=== PATIENT | female | born 1950 | race American Indian/Alaskan Native ===

== ENCOUNTER 2017-08-25 23:02 | Inpatient (IN) | payer MEDICARE, OTHER ==
[2017-08-25 23:56] LABS: Basophils % (Auto) 0.2 % (0.0-1.8); Hematocrit 43.4 % (30.3-42.9); Hemoglobin 14.1 gm/dl (10.1-14.3); Lymphocytes # (Auto) 2.2 K/mm3 (1.2-5.4); Mean Corpuscular HGB Conc 33 % (30-34); Mean Corpuscular Hemoglobin 28 pg (28-32); Mean Corpuscular Volume 86 fl (79-97); Monocytes # (Auto) 0.7 K/mm3 (0.0-0.8); Monocytes % (Auto) 10.1 % (0.0-7.3); Red Blood Count 5.06 M/mm3 (3.65-5.03); Red Cell Distribution Width 15.3 % (13.2-15.2)
[2017-08-26] LABS: Platelet Count 96 K/mm3 (140-440)
[2017-08-26 00:26] LABS: Albumin 3.8 g/dL (3.9-5); Calcium 8.9 mg/dL (8.4-10.2)
--- NOTE | 2017-08-26 00:59 | Emergency Department Report ---
ED Altered Mental Status HPI - General Chief Complaint: Altered Mental Status Stated Complaint: AMS Time Seen by Provider: 08/26/17 00:56 Source: EMS Mode of arrival: Stretcher Limitations: Altered Mental Status - History of Present Illness Initial Comments: Patient brought in with report of altered mental status, reported by family that she was disoriented and groaning, with patient stating that her stomach hurts. She has a past history of lymphoma, which was successfully treated in 2016, and she returned to [place] yesterday had a port removed, and daughter reports that patient has been increasingly weak since that time, has been intermittently confused, which got much worse approximately 2 hours prior to arrival . Daughter also notes that she has been having increasing diarrhea, as well as intermittent vomiting, but this has been intermittent, generally 2-3 times over the day. She is noted to have a low-grade fever on arrival with temperature of 99.7. Daughter noticed that mother has significantly improved after arrival here, and is again much more clearly. Past medical history is significant for lymphoma, adenocarcinoma of the palate, hypertension, past stroke. MD Complaint: altered mental status, weakness Onset/Timin -: days(s) Severity: moderate - Related Data Home Medications Medication Instructions Recorded Confirmed Last Taken Aspirin [Aspirin BABY CHEW TAB] 81 mg PO ONCE 09/08/13 10/23/13 10/23/13 Carvedilol [Coreg] 50 mg PO BID 09/08/13 10/23/13 10/23/13 Atorvastatin (Nf) [Lipitor (Nf)] 20 mg PO QDAY 10/23/13 10/23/13 10/22/13 Doxazosin [Cardura] 4 mg PO BID 10/23/13 10/23/13 10/23/13 Ibuprofen [Motrin 600 MG tab] 600 mg PO Q8H PRN 10/23/13 10/23/13 Unknown Isosorbibe Dinit/Hydralazine 8 mg PO Q8H 10/23/13 10/23/13 10/23/13 [Bidil Tablet] Meloxicam 15 mg PO QDAY 10/23/13 10/23/13 Unknown cloNIDine [Catapres] 0.1 mg PO Q6H PRN 10/23/13 10/23/13 Unknown Allergies Allergy/AdvReac Type Severity Reaction Status Date / Time ibuprofen [From Motrin] Allergy Headache Verified 09/08/13 19:41 ED Review of Systems ROS: Stated complaint: AMS Other details as noted in HPI ED Past Medical Hx - Past Medical History Hx Hypertension: Yes Hx Congestive Heart Failure: Yes Additional medical history: Adenocarcinoma of maxillary glands, palatal defect, Lymphoma, Back pain. Vertigo, heart failure - Surgical History Additional Surgical History: Left hip surgery - Social History Smoking Status: Never Smoker Substance Use Type: None - Medications Home Medications: Home Medications Medication Instructions Recorded Confirmed Last Taken Type Aspirin [Aspirin BABY CHEW TAB] 81 mg PO ONCE 09/08/13 10/23/13 10/23/13 History Carvedilol [Coreg] 50 mg PO BID 09/08/13 10/23/13 10/23/13 History Atorvastatin (Nf) [Lipitor (Nf)] 20 mg PO QDAY 10/23/13 10/23/13 10/22/13 History Doxazosin [Cardura] 4 mg PO BID 10/23/13 10/23/13 10/23/13 History Ibuprofen [Motrin 600 MG tab] 600 mg PO Q8H PRN 10/23/13 10/23/13 Unknown History Isosorbibe Dinit/Hydralazine 8 mg PO Q8H 10/23/13 10/23/13 10/23/13 History [Bidil Tablet] Meloxicam 15 mg PO QDAY 10/23/13 10/23/13 Unknown History cloNIDine [Catapres] 0.1 mg PO Q6H PRN 10/23/13 10/23/13 Unknown History ED Physical Exam - General Limitations: Altered Mental Status General appearance: alert, in distress (febrile, modestly uncomfortable, but alert and oriented) - Head Head exam: Present: atraumatic, normocephalic - Eye Eye exam: Present: PERRL, EOMI - ENT ENT exam: Present: normal exam, mucous membranes dry - Neck Neck exam: Present: normal inspection. Absent: tenderness - Respiratory Respiratory exam: Present: normal lung sounds bilaterally. Absent: respiratory distress, wheezes, rales, rhonchi - Cardiovascular Cardiovascular Exam: Present: regular rate, tachycardia - GI/Abdominal GI/Abdominal exam: Present: soft, tenderness (left flank), normal bowel sounds - Rectal Rectal exam: Present: deferred - Extremities Exam Extremities exam: Present: normal inspection, full ROM. Absent: tenderness - Back Exam Back exam: Present: CVA tenderness (L) - Neurological Exam Neurological exam: Present: alert, oriented X3, CN II-XII intact. Absent: motor sensory deficit - Psychiatric Psychiatric exam: Present: normal affect, normal mood - Skin Skin exam: Present: warm (feverish), dry ED Course Vital Signs 08/25/17 08/25/17 08/25/17 23:15 23:25 23:30 Temperature 99.7 F H 98.7 F Pulse Rate 101 H 94 H 93 H Respiratory 22 20 12 Rate Blood Pressure 132/81 133/79 Blood Pressure 132/81 [Left] O2 Sat by Pulse 99 97 Oximetry 08/25/17 08/26/17 08/26/17 23:46 00:00 00:16 Temperature Pulse Rate 99 H 99 H 96 H Respiratory 11 L 21 20 Rate Blood Pressure 133/79 133/87 133/87 Blood Pressure [Left] O2 Sat by Pulse 98 98 97 Oximetry 08/26/17 08/26/17 08/26/17 00:30 00:46 01:00 Temperature Pulse Rate 98 H 96 H 94 H Respiratory 24 25 H 25 H Rate Blood Pressure 134/86 134/86 144/85 Blood Pressure [Left] O2 Sat by Pulse 97 95 Oximetry 08/26/17 08/26/17 08/26/17 01:16 01:30 01:45 Temperature 99.2 F Pulse Rate 105 H 104 H Respiratory 20 20 Rate Blood Pressure 134/86 143/85 Blood Pressure [Left] O2 Sat by Pulse 96 97 Oximetry 08/26/17 08/26/17 08/26/17 01:46 02:00 02:16 Temperature Pulse Rate 100 H 96 H 98 H Respiratory 19 17 14 Rate Blood Pressure 144/85 137/78 137/78 Blood Pressure [Left] O2 Sat by Pulse 100 95 98 Oximetry 08/26/17 08/26/17 08/26/17 02:30 02:46 03:00 Temperature Pulse Rate 92 H 93 H 100 H Respiratory 16 20 20 Rate Blood Pressure 128/72 128/72 128/72 Blood Pressure [Left] O2 Sat by Pulse 96 93 98 Oximetry 08/26/17 08/26/17 08/26/17 03:16 03:30 03:46 Temperature Pulse Rate 94 H 99 H 97 H Respiratory 12 21 21 Rate Blood Pressure 115/73 100/65 100/65 Blood Pressure [Left] O2 Sat by Pulse 95 94 95 Oximetry 08/26/17 08/26/17 08/26/17 04:00 04:16 04:30 Temperature Pulse Rate 94 H 96 H 93 H Respiratory 20 19 21 Rate Blood Pressure 112/65 100/65 110/64 Blood Pressure [Left] O2 Sat by Pulse 94 95 95 Oximetry 08/26/17 08/26/17 04:46 05:00 Temperature Pulse Rate 100 H 95 H Respiratory 21 21 Rate Blood Pressure 110/64 121/66 Blood Pressure [Left] O2 Sat by Pulse 97 94 Oximetry - Reevaluation(s) Reevaluation #1: 08/26/17 05:27 Patient remains febrile, but is still awake and oriented, she has a persistent tachycardia, even after rehydration with 1 L of saline. Vital signs are otherwise stable, patient remains febrile at 99.5, and she was treated for fever with acetaminophen. - Consultations Consultation #1: 08/26/17 05:30 Dr. Puente contacted for admission of patient, with findings of pyelonephritis, and hypokalemia. - Lab Data Result diagrams: 08/25/17 23:45 08/25/17 23:45 Lab Results 08/25/17 08/25/17 08/25/17 Range/Units 23:45 23:45 23:45 WBC 7.3 (4.5-11.0) K/mm3 RBC 5.06 H (3.65-5.03) M/mm3 Hgb 14.1 (10.1-14.3) gm/dl Hct 43.4 H (30.3-42.9) % MCV 86 (79-97) fl MCH 28 (28-32) pg MCHC 33 (30-34) % RDW 15.3 H (13.2-15.2) % Plt Count 96 L (140-440) K/mm3 Lymph % (Auto) 30.0 (13.4-35.0) % [place] % (Auto) 10.1 H (0.0-7.3) % Eos % (Auto) 0.0 (0.0-4.3) % Baso % (Auto) 0.2 (0.0-1.8) % Lymph # 2.2 (1.2-5.4) K/mm3 [place] # 0.7 (0.0-0.8) K/mm3 Eos # 0.0 (0.0-0.4) K/mm3 Baso # 0.0 (0.0-0.1) K/mm3 Seg Neutrophils % 59.7 (40.0-70.0) % Seg Neutrophils # 4.3 (1.8-7.7) K/mm3 Sodium 142 (137-145) mmol/L Potassium 3.0 L (3.6-5.0) mmol/L Chloride 98.2 (98-107) mmol/L Carbon Dioxide 24 (22-30) mmol/L Anion Gap 23 mmol/L BUN 29 H (7-17) mg/dL Creatinine 1.6 H (0.7-1.2) mg/dL Estimated GFR 39 ml/min BUN/Creatinine Ratio 18 % Glucose 117 H (65-100) mg/dL Lactic Acid (0.7-2.0) mmol/L Calcium 8.9 (8.4-10.2) mg/dL Total Bilirubin 0.50 (0.1-1.2) mg/dL AST 29 (5-40) units/L ALT 22 (7-56) units/L Alkaline Phosphatase 85 (35-129) units/L Total Protein 6.7 (6.3-8.2) g/dL Albumin 3.8 L (3.9-5) g/dL Albumin/Globulin Ratio 1.3 % TSH 0.982 (0.270-4.200) mlU/mL Urine Color (Yellow) Urine Turbidity (Clear) Urine pH (5.0-7.0) Ur Specific [place] (1.003-1.030) Urine Protein (Negative) mg/dL Urine Glucose (UA) (Negative) mg/dL Urine Ketones (Negative) mg/dL Urine Blood (Negative) Urine Nitrite (Negative) Urine Bilirubin (Negative) Urine Urobilinogen (<2.0) mg/dL Ur Leukocyte Esterase (Negative) Urine WBC (Auto) (0.0-6.0) /HPF Urine RBC (Auto) (0.0-6.0) /HPF U Epithel Cells (Auto) (0-13.0) /HPF Urine Bacteria (Auto) (Negative) /HPF Hyaline Casts /LPF Granular Casts /LPF Urine Mucus /HPF Urine Opiates Screen Urine Methadone Screen Ur Barbiturates Screen Ur Phencyclidine Scrn Ur Amphetamines Screen U Benzodiazepines Scrn Urine Cocaine Screen U Marijuana (THC) Screen Drugs of Abuse Note Plasma/Serum Alcohol (0-0.07) % 08/25/17 08/26/17 08/26/17 Range/Units 23:45 01:40 01:40 WBC (4.5-11.0) K/mm3 RBC (3.65-5.03) M/mm3 Hgb (10.1-14.3) gm/dl Hct (30.3-42.9) % MCV (79-97) fl MCH (28-32) pg MCHC (30-34) % RDW (13.2-15.2) % Plt Count (140-440) K/mm3 Lymph % (Auto) (13.4-35.0) % [place] % (Auto) (0.0-7.3) % Eos % (Auto) (0.0-4.3) % Baso % (Auto) (0.0-1.8) % Lymph # (1.2-5.4) K/mm3 [place] # (0.0-0.8) K/mm3 Eos # (0.0-0.4) K/mm3 Baso # (0.0-0.1) K/mm3 Seg Neutrophils % (40.0-70.0) % Seg Neutrophils # (1.8-7.7) K/mm3 Sodium (137-145) mmol/L Potassium (3.6-5.0) mmol/L Chloride (98-107) mmol/L Carbon Dioxide (22-30) mmol/L Anion Gap mmol/L BUN (7-17) mg/dL Creatinine (0.7-1.2) mg/dL Estimated GFR ml/min BUN/Creatinine Ratio % Glucose (65-100) mg/dL Lactic Acid (0.7-2.0) mmol/L Calcium (8.4-10.2) mg/dL Total Bilirubin (0.1-1.2) mg/dL AST (5-40) units/L ALT (7-56) units/L Alkaline Phosphatase (35-129) units/L Total Protein (6.3-8.2) g/dL Albumin (3.9-5) g/dL Albumin/Globulin Ratio % TSH (0.270-4.200) mlU/mL Urine Color [place] (Yellow) Urine Turbidity Hazy (Clear) Urine pH 5.0 (5.0-7.0) Ur Specific [place] 1.020 (1.003-1.030) Urine Protein 100 mg/dl (Negative) mg/dL Urine Glucose (UA) Neg (Negative) mg/dL Urine Ketones Tr (Negative) mg/dL Urine Blood Sm (Negative) Urine Nitrite Neg (Negative) Urine Bilirubin Neg (Negative) Urine Urobilinogen < 2.0 (<2.0) mg/dL Ur Leukocyte Esterase Lg (Negative) Urine WBC (Auto) 16.0 H (0.0-6.0) /HPF Urine RBC (Auto) 32.0 (0.0-6.0) /HPF U Epithel Cells (Auto) 11.0 (0-13.0) /HPF Urine Bacteria (Auto) 2+ (Negative) /HPF Hyaline Casts 57 /LPF Granular Casts 8 /LPF Urine Mucus 1+ /HPF Urine Opiates Screen Presumptive negative Urine Methadone Screen Presumptive negative Ur Barbiturates Screen Presumptive negative Ur Phencyclidine Scrn Presumptive negative Ur Amphetamines Screen Presumptive negative U Benzodiazepines Scrn Presumptive positive Urine Cocaine Screen Presumptive negative U Marijuana (THC) Screen Presumptive negative Drugs of Abuse Note Disclamer Plasma/Serum Alcohol < 0.01 (0-0.07) % 08/26/17 Range/Units 02:05 WBC (4.5-11.0) K/mm3 RBC (3.65-5.03) M/mm3 Hgb (10.1-14.3) gm/dl Hct (30.3-42.9) % MCV (79-97) fl MCH (28-32) pg MCHC (30-34) % RDW (13.2-15.2) % Plt Count (140-440) K/mm3 Lymph % (Auto) (13.4-35.0) % [place] % (Auto) (0.0-7.3) % Eos % (Auto) (0.0-4.3) % Baso % (Auto) (0.0-1.8) % Lymph # (1.2-5.4) K/mm3 [place] # (0.0-0.8) K/mm3 Eos # (0.0-0.4) K/mm3 Baso # (0.0-0.1) K/mm3 Seg Neutrophils % (40.0-70.0) % Seg Neutrophils # (1.8-7.7) K/mm3 Sodium (137-145) mmol/L Potassium (3.6-5.0) mmol/L Chloride (98-107) mmol/L Carbon Dioxide (22-30) mmol/L Anion Gap mmol/L BUN (7-17) mg/dL Creatinine (0.7-1.2) mg/dL Estimated GFR ml/min BUN/Creatinine Ratio % Glucose (65-100) mg/dL Lactic Acid 1.20 (0.7-2.0) mmol/L Calcium (8.4-10.2) mg/dL Total Bilirubin (0.1-1.2) mg/dL AST (5-40) units/L ALT (7-56) units/L Alkaline Phosphatase (35-129) units/L Total Protein (6.3-8.2) g/dL Albumin (3.9-5) g/dL Albumin/Globulin Ratio % TSH (0.270-4.200) mlU/mL Urine Color (Yellow) Urine Turbidity (Clear) Urine pH (5.0-7.0) Ur Specific [place] (1.003-1.030) Urine Protein (Negative) mg/dL Urine Glucose (UA) (Negative) mg/dL Urine Ketones (Negative) mg/dL Urine Blood (Negative) Urine Nitrite (Negative) Urine Bilirubin (Negative) Urine Urobilinogen (<2.0) mg/dL Ur Leukocyte Esterase (Negative) Urine WBC (Auto) (0.0-6.0) /HPF Urine RBC (Auto) (0.0-6.0) /HPF U Epithel Cells (Auto) (0-13.0) /HPF Urine Bacteria (Auto) (Negative) /HPF Hyaline Casts /LPF Granular Casts /LPF Urine Mucus /HPF Urine Opiates Screen Urine Methadone Screen Ur Barbiturates Screen Ur Phencyclidine Scrn Ur Amphetamines Screen U Benzodiazepines Scrn Urine Cocaine Screen U Marijuana (THC) Screen Drugs of Abuse Note Plasma/Serum Alcohol (0-0.07) % - EKG Data EKG shows normal: sinus rhythm, axis (QRS axis at -1), intervals (WA interval is normal, QT interval is normal at 446 ms corrected), QRS complexes ( compatible with left ventricular hypertrophy by voltage criteria and anterior limb leads), ST-T waves (nonspecific ST-T wave flattening, no acute changes) - Radiology Data Radiology results: report reviewed (chest x-ray clear, mild cardiomegaly, lungs espinoza are clear.) - Medical Decision Making Patient has persistent fever, with nausea and vomiting, as well as transient confusion, with signs of urinary tract infection and left flank tenderness. She likely has a pyelonephritis, although she is stable by SIRS criteria, she' ll need hospitalization for IV antibiotic treatment, she is likely not able to keep an oral medicine regimen adequately at home. - Differential Diagnosis fever, pneumonia, dehydration, gastroenteritis, UTI Critical Care Time: No Critical care attestation.: If time is entered above; I have spent that time in minutes in the direct care of this critically ill patient, excluding procedure time. ED Disposition Clinical Impression: Pyelonephritis, acute, Hypokalemia Disposition: -09 OP ADMIT IP TO THIS HOSP Is pt being admited?: Yes Does the pt Need Aspirin: No Condition: Stable Referrals: PRIMARY CARE, [Primary Care Provider] - 3-5 Days Time of Disposition: 05:31
[2017-08-26] MEDS ORDERED: NACL 0.9% 1000 ML 1,000 ML IV ONE (01:42)
[2017-08-26] MEDS ORDERED: ZOFRAN IV ONE (01:45)
[2017-08-26] MEDS ORDERED: TYLENOL PO ONE (01:46)
--- NOTE | 2017-08-26 02:00 | XRay Report ---
FINAL REPORT EXAM: XR CHEST 1V AP HISTORY: fever, altered mental COMPARISON: None available. FINDINGS: Frontal view(s) of the chest obtained. Mild cardiac enlargement. No gross focal consolidation or effusion. No pneumothorax. IMPRESSION: Mild cardiac enlargement. No gross focal consolidation.
[2017-08-26 02:11] LABS: Amphetamine Screen,Urine PRESUMPTIVE NEGATIVE; Cannabinoid Screen,Urine PRESUMPTIVE NEGATIVE; Cocaine Screen,Urine PRESUMPTIVE NEGATIVE; Methadone Screen,Urine PRESUMPTIVE NEGATIVE; Opiate Screen,Urine PRESUMPTIVE NEGATIVE
[2017-08-26 02:13] LABS: Bacteria,Urine 2+ /HPF (Negative); Bilirubin,Urine NEG (Negative); Blood,Urine SM (Negative); Color,Urine Amber (Yellow); Granular Casts,Urine 8 /LPF; Hyaline Casts,Urine 57 /LPF; Mucus,Urine 1+ /HPF; Urobilinogen,Urine < 2.0 mg/dL (<2.0)
[2017-08-26 02:30] LABS: Benzodiazepines Screen,Urine PRESUMPTIVE POSITIVE
[2017-08-26] MEDS ORDERED: KCL 10MEQ/100ML 10 MEQ/100 ML BAG IV ONE (04:56)
[2017-08-26] MEDS ORDERED: ROCEPHIN/NS 1 GM/50 ML 1 GM/50 ML BAG IV ONE (05:24)
[2017-08-26] MEDS ORDERED: TYLENOL PO PRN (05:54)
[2017-08-26] MEDS ORDERED: SODIUM CHLORIDE FLUSH SYRINGE 10 ML IV PRN (05:54)
[2017-08-26] MEDS ORDERED: ZOFRAN IV PRN (05:54)
[2017-08-26] MEDS ORDERED: cefTRIAXone 1 GM in NACL 0.9% 20 ML IV ONE (06:00)
[2017-08-26] MEDS ORDERED: NACL 0.9% 1000 ML 1,000 ML IV SCH (06:00)
[2017-08-26] MEDS ORDERED: ROCEPHIN/NS 1 GM/50 ML 1 GM/50 ML BAG IV SCH (06:00)
--- NOTE | 2017-08-26 06:08 | History and Physical Report ---
History of Present Illness Date of examination: 08/26/17 History of present illness: 67-year-old lady with a history of hypertension, hyperlipidemia, CHF, A. fib, lymphoma was brought to the emergency room with plains of chills, confusion. Also complaining of rhinorrhea, dry cough, and diarrhea which is resolved Review of systems Constitutional: no weight loss Ears, eyes, nose, mouth and throat: no nasal congestion, no nasal discharge, no sinus pressure, no vision change, no red eye. Neck: No neck pain or rigidity. Cardiovascular: no chest pain, palpitations Respiratory: No cough, shortness of breath Gastrointestinal: no abdominal pain, hematochezia Genitourinary : no dysuria, frequency , no hematuria Musculoskeletal: no joint swelling or muscle ache Integumentary: no rash, no pruritis Neurological: no parathesias, no numbness, no focal weakness Endocrine: no cold or heat intolerance, no polyuria or polydipsia Hematologic/Lymphatic: no easy bruising, no easy bleeding, no gland swelling Allergic/Immunologic: no urticaria, no angioedema. PAST MEDICAL HISTORY: hypertension, hyperlipidemia, CHF, A. fib, lymphoma PAST SURGICAL HISTORY: Port placement and removal, hip surgery, oral surgery SOCIAL HISTORY: Denies alcohol, tobacco, drugs FAMILY HISTORY: Hypertension Medications and Allergies Allergies Allergy/AdvReac Type Severity Reaction Status Date / Time ibuprofen [From Motrin] Allergy Headache Verified 09/08/13 19:41 Home Medications Medication Instructions Recorded Confirmed Last Taken Type Aspirin [Aspirin BABY CHEW TAB] 81 mg PO ONCE 09/08/13 10/23/13 10/23/13 History Carvedilol [Coreg] 50 mg PO BID 09/08/13 10/23/13 10/23/13 History Atorvastatin (Nf) [Lipitor (Nf)] 20 mg PO QDAY 10/23/13 10/23/13 10/22/13 History Doxazosin [Cardura] 4 mg PO BID 10/23/13 10/23/13 10/23/13 History Ibuprofen [Motrin 600 MG tab] 600 mg PO Q8H PRN 10/23/13 10/23/13 Unknown History Isosorbibe Dinit/Hydralazine 8 mg PO Q8H 10/23/13 10/23/13 10/23/13 History [Bidil Tablet] Meloxicam 15 mg PO QDAY 10/23/13 10/23/13 Unknown History cloNIDine [Catapres] 0.1 mg PO Q6H PRN 10/23/13 10/23/13 Unknown History Active Meds: Active Medications Acetaminophen (Tylenol) 650 mg PO Q4H PRN PRN Reason: Pain MILD(1-3)/Fever >100.5/CH Sodium Chloride (Nacl 0.9% 1000 Ml) 1,000 mls @ 250 mls/hr IV DIRECT TONNY Ceftriaxone Sodium 1 gm/ (Sodium Chloride) 20 mls @ 2 mls/min IV ONCE ONE Stop: 08/26/17 06:09 Ceftriaxone Sodium (Rocephin/Ns 1 Gm/50 Ml) 1 gm in 50 mls @ 100 mls/hr IV Q24H TONNY; Protocol Exam - Physical Exam Narrative exam: Gen. appearance: Patient lying in bed, no apparent distress HEENT: Normocephalic, atraumatic, pupils equally round and reactive to light, extraocular movement intact, and no sclericterus,. No JVD or thyromegaly or nodule,neck supple, no carotid bruit ,mucous membranes moist, no exudate or erythema Heart: S1, S2, regular rate and rhythm Lungs: Clear to auscultation bilaterally, breathing comfortable Abdomen: Positive bowel sounds, nontender, nondistended, no organomegaly Extremity: No edema, cyanosis, clubbing Skin: No rash, nodules, warm, dry Neuro: Oriented 3, cranial nerves II-12 intact, speech is fluent, motor and sensory intact - Constitutional Vitals: Temp Pulse Resp BP Pulse Ox 99.2 F 95 H 21 121/66 94 08/26/17 01:45 08/26/17 05:00 08/26/17 05:00 08/26/17 05:00 08/26/17 05:00 Results - Labs CBC & Chem 7: 08/25/17 23:45 08/25/17 23:45 Labs: Abnormal lab results 08/25/17 08/25/17 08/26/17 Range/Units 23:45 23:45 01:40 RBC 5.06 H (3.65-5.03) M/mm3 Hct 43.4 H (30.3-42.9) % RDW 15.3 H (13.2-15.2) % Plt Count 96 L (140-440) K/mm3 [place] % (Auto) 10.1 H (0.0-7.3) % Potassium 3.0 L (3.6-5.0) mmol/L BUN 29 H (7-17) mg/dL Creatinine 1.6 H (0.7-1.2) mg/dL Glucose 117 H (65-100) mg/dL Albumin 3.8 L (3.9-5) g/dL Urine WBC (Auto) 16.0 H (0.0-6.0) /HPF - Imaging and Cardiology Chest x-ray: image reviewed Assessment and Plan Assessment Acute encephalopathy Urinary tract infection Hypertension Hyperlipidemia A. fib Lymphoma Plan Admit to medicine Start IV Rocephin, follow cultures Continue Procrit up his medications DVT prophylaxis
[2017-08-26] MEDS ORDERED: TYLENOL ONE (07:40)
[2017-08-26] MEDS ORDERED: CATAPRES PO PRN (08:04)
[2017-08-26] MEDS ORDERED: BIDIL 20/37.5MG PO SCH (09:00)
[2017-08-26] MEDS: CARDURA PO SCH ×2 (09:32→21:24)
[2017-08-26] MEDS: SODIUM CHLORIDE FLUSH SYRINGE 10 ML IV SCH ×2 (09:32→22:15)
[2017-08-26] MEDS: COREG PO SCH ×2 (09:34→21:23)
[2017-08-26] MEDS: NACL 0.9% 1000 ML 1,000 ML IV SCH (09:39)
[2017-08-26] MEDS ORDERED: LOVENOX SUB-Q SCH (10:00)
--- NOTE | 2017-08-26 14:30 | Event Note ---
Date: 08/26/17 Patient seen and evaluated Medical records reviewed Admitted smoking. Sepsis secondary to UTI Agree with current management Follow cultures, consider ID evaluation will need
[2017-08-26] MEDS: ULTRAM PO PRN (18:21)
[2017-08-27] MEDS: NACL 0.9% 1000 ML 1,000 ML IV SCH ×2 (01:00→17:05)
[2017-08-27 05:03] LABS: Hematocrit 34.6 % (30.3-42.9); Hemoglobin 11.7 gm/dl (10.1-14.3); Mean Corpuscular HGB Conc 34 % (30-34); Mean Corpuscular Hemoglobin 29 pg (28-32); Mean Corpuscular Volume 85 fl (79-97); Red Blood Count 4.08 M/mm3 (3.65-5.03); Red Cell Distribution Width 15.5 % (13.2-15.2)
[2017-08-27 05:05] LABS: Platelet Count 69 K/mm3 (140-440)
[2017-08-27 05:21] LABS: Calcium 7.7 mg/dL (8.4-10.2)
[2017-08-27 05:53] LABS: Total Cells Counted 100
[2017-08-27 05:54] LABS: Basophils % (Manual) 0 % (0.0-1.8); Eosinophils % (Manual) 0 % (0.0-4.3)
[2017-08-27 05:57] LABS: Platelet Estimate Consistent w Auto
[2017-08-27] MEDS ORDERED: cefTRIAXone 1 GM in NACL 0.9% 20 ML IV SCH (06:00)
[2017-08-27] MEDS ORDERED: K-DUR PO ONE (08:40)
--- NOTE | 2017-08-27 08:42 | Progress Note ---
Assessment and Plan Assessment and plan: --Metabolic encephalopathy; secondary to sepsis secondary to urinary tract infection Slightly improved, patient is more alert and awake, continue supportive care --Sepsis due to urinary tract infection; present on admission IV fluids, empiric antibiotics, follow cultures, consider ID evaluation if needed --Hypertension; moderate control, continue antihypertensives and when necessary meds --Acute kidney injury; secondary to ATN, significantly improved Closely monitor renal function, avoid nephrotoxins --Dyslipidemia; stable on lipid-lowering medications --DVT prophylaxis with Lovenox Closely monitor the patient and adjust the management as needed Possible discharge home in 1-2 days if stable History Interval history: Patient seen and examined medical records reviewed No new events reported by the nursing staff Patient feels slightly better Alert awake oriented 3 Vital signs reviewed Hospitalist Physical - Constitutional Vitals: Temp Pulse Resp BP Pulse Ox 99.9 F H 90 20 137/67 95 08/27/17 07:53 08/27/17 07:53 08/27/17 07:53 08/27/17 07:53 08/27/17 07:53 General appearance: Present: no acute distress, well-nourished, obese - EENT Eyes: Present: PERRL, EOM intact - Neck Neck: Present: supple, normal ROM - Respiratory Respiratory effort: normal Respiratory: negative: rales, rhonchi, wheezing - Cardiovascular Rhythm: regular Heart Sounds: Present: S1 & S2 - Extremities Extremities: no ischemia, No edema - Abdominal General gastrointestinal: soft, non-tender, non-distended, normal bowel sounds - Integumentary Integumentary: Present: clear, warm - Psychiatric Psychiatric: appropriate mood/affect, cooperative - Neurologic Neurologic: CNII-XII intact, moves all extremities Results - Labs CBC & Chem 7: 08/27/17 04:45 08/27/17 04:45 Labs: Laboratory Last Values WBC 2.7 K/mm3 (4.5-11.0) L 08/27/17 04:45 RBC 4.08 M/mm3 (3.65-5.03) 08/27/17 04:45 Hgb 11.7 gm/dl (10.1-14.3) 08/27/17 04:45 Hct 34.6 % (30.3-42.9) D 08/27/17 04:45 MCV 85 fl (79-97) 08/27/17 04:45 MCH 29 pg (28-32) 08/27/17 04:45 MCHC 34 % (30-34) 08/27/17 04:45 RDW 15.5 % (13.2-15.2) H 08/27/17 04:45 Plt Count 69 K/mm3 (140-440) L 08/27/17 04:45 Lymph % (Auto) [employer] Agent 08/27/17 04:45 [place] % (Auto) 10.1 % (0.0-7.3) H 08/25/17 23:45 Eos % (Auto) 0.0 % (0.0-4.3) 08/25/17 23:45 Baso % (Auto) 0.2 % (0.0-1.8) 08/25/17 23:45 Lymph # 2.2 K/mm3 (1.2-5.4) 08/25/17 23:45 [place] # 0.7 K/mm3 (0.0-0.8) 08/25/17 23:45 Eos # 0.0 K/mm3 (0.0-0.4) 08/25/17 23:45 Baso # 0.0 K/mm3 (0.0-0.1) 08/25/17 23:45 Add Manual Diff Complete 08/27/17 04:45 Total Counted 100 08/27/17 04:45 Seg Neutrophils % [employer] 08/27/17 04:45 Seg Neuts % (Manual) 44.0 % (40.0-70.0) 08/27/17 04:45 Band Neutrophils % 1.0 % 08/27/17 04:45 Lymphocytes % (Manual) 43.0 % (13.4-35.0) H 08/27/17 04:45 Reactive Lymphs % (Man) 0 % 08/27/17 04:45 Monocytes % (Manual) 12.0 % (0.0-7.3) H 08/27/17 04:45 Eosinophils % (Manual) 0 % (0.0-4.3) 08/27/17 04:45 Basophils % (Manual) 0 % (0.0-1.8) 08/27/17 04:45 Metamyelocytes % 0 % 08/27/17 04:45 Myelocytes % 0 % 08/27/17 04:45 Promyelocytes % 0 % 08/27/17 04:45 Blast Cells % 0 % 08/27/17 04:45 Nucleated RBC % Not Reportable 08/27/17 04:45 Seg Neutrophils # 4.3 K/mm3 (1.8-7.7) 08/25/17 23:45 Seg Neutrophils # Man 1.2 K/mm3 (1.8-7.7) L 08/27/17 04:45 Band Neutrophils # 0.0 K/mm3 08/27/17 04:45 Lymphocytes # (Manual) 1.2 K/mm3 (1.2-5.4) 08/27/17 04:45 Abs React Lymphs (Man) 0.0 K/mm3 08/27/17 04:45 Monocytes # (Manual) 0.3 K/mm3 (0.0-0.8) 08/27/17 04:45 Eosinophils # (Manual) 0.0 K/mm3 (0.0-0.4) 08/27/17 04:45 Basophils # (Manual) 0.0 K/mm3 (0.0-0.1) 08/27/17 04:45 Metamyelocytes # 0.0 K/mm3 08/27/17 04:45 Myelocytes # 0.0 K/mm3 08/27/17 04:45 Promyelocytes # 0.0 K/mm3 08/27/17 04:45 Blast Cells # 0.0 K/mm3 08/27/17 04:45 WBC Morphology Not Reportable 08/27/17 04:45 Hypersegmented Neuts Not Reportable 08/27/17 04:45 Hyposegmented Neuts Not Reportable 08/27/17 04:45 Hypogranular Neuts Not Reportable 08/27/17 04:45 Smudge Cells Not Reportable 08/27/17 04:45 Toxic Granulation Not Reportable 08/27/17 04:45 Toxic Vacuolation Not Reportable 08/27/17 04:45 Dohle Bodies Not Reportable 08/27/17 04:45 Pelger-Huet Anomaly Not Reportable 08/27/17 04:45 Marya Rods Not Reportable 08/27/17 04:45 Platelet Estimate Consistent w auto 08/27/17 04:45 Clumped Platelets Not Reportable 08/27/17 04:45 Plt Clumps, EDTA Not Reportable 08/27/17 04:45 Large Platelets Not Reportable 08/27/17 04:45 Giant Platelets Not Reportable 08/27/17 04:45 Platelet Satelliting Not Reportable 08/27/17 04:45 Plt Morphology Comment Not Reportable 08/27/17 04:45 RBC Morphology Not Reportable 08/27/17 04:45 Dimorphic RBCs Not Reportable 08/27/17 04:45 Polychromasia Not Reportable 08/27/17 04:45 Hypochromasia Not Reportable 08/27/17 04:45 Poikilocytosis Not Reportable 08/27/17 04:45 Anisocytosis Not Reportable 08/27/17 04:45 Microcytosis Not Reportable 08/27/17 04:45 Macrocytosis Not Reportable 08/27/17 04:45 Spherocytes Not Reportable 08/27/17 04:45 Pappenheimer Bodies Not Reportable 08/27/17 04:45 Sickle Cells Not Reportable 08/27/17 04:45 Target Cells Not Reportable 08/27/17 04:45 Tear Drop Cells Not Reportable 08/27/17 04:45 Ovalocytes Not Reportable 08/27/17 04:45 Helmet Cells Not Reportable 08/27/17 04:45 Mack[place] Bodies Not Reportable 08/27/17 04:45 [place] Rings Not Reportable 08/27/17 04:45 Sami Cells Not Reportable 08/27/17 04:45 Bite Cells Not Reportable 08/27/17 04:45 Crenated Cell Not Reportable 08/27/17 04:45 Elliptocytes Few 08/27/17 04:45 Acanthocytes (Spur) Not Reportable 08/27/17 04:45 Rouleaux Not Reportable 08/27/17 04:45 Hemoglobin C Crystals Not Reportable 08/27/17 04:45 Schistocytes Not Reportable 08/27/17 04:45 Malaria parasites Not Reportable 08/27/17 04:45 Pete Bodies Not Reportable 08/27/17 04:45 Hem Pathologist Commnt No 08/27/17 04:45 Sodium 147 mmol/L (137-145) H 08/27/17 04:45 Potassium 3.4 mmol/L (3.6-5.0) L 08/27/17 04:45 Chloride 110.2 mmol/L (98-107) H 08/27/17 04:45 Carbon Dioxide 24 mmol/L (22-30) 08/27/17 04:45 Anion Gap 16 mmol/L 08/27/17 04:45 BUN 18 mg/dL (7-17) H 08/27/17 04:45 Creatinine 1.2 mg/dL (0.7-1.2) 08/27/17 04:45 Estimated GFR 54 ml/min 08/27/17 04:45 BUN/Creatinine Ratio 15 % 08/27/17 04:45 Glucose 85 mg/dL (65-100) 08/27/17 04:45 Lactic Acid 1.20 mmol/L (0.7-2.0) 08/26/17 02:05 Calcium 7.7 mg/dL (8.4-10.2) L 08/27/17 04:45 Total Bilirubin 0.50 mg/dL (0.1-1.2) 08/25/17 23:45 AST 29 units/L (5-40) 08/25/17 23:45 ALT 22 units/L (7-56) 08/25/17 23:45 Alkaline Phosphatase 85 units/L (35-129) 08/25/17 23:45 Total Protein 6.7 g/dL (6.3-8.2) 08/25/17 23:45 Albumin 3.8 g/dL (3.9-5) L 08/25/17 23:45 Albumin/Globulin Ratio 1.3 % 08/25/17 23:45 TSH 0.982 mlU/mL (0.270-4.200) 08/25/17 23:45 Urine Color [place]ala (Yellow) 08/26/17 01:40 Urine Turbidity Hazy (Clear) 08/26/17 01:40 Urine pH 5.0 (5.0-7.0) 08/26/17 01:40 Ur Specific [place] 1.020 (1.003-1.030) 08/26/17 01:40 Urine Protein 100 mg/dl mg/dL (Negative) 08/26/17 01:40 Urine Glucose (UA) Neg mg/dL (Negative) 08/26/17 01:40 Urine Ketones Tr mg/dL (Negative) 08/26/17 01:40 Urine Blood Sm (Negative) 08/26/17 01:40 Urine Nitrite Neg (Negative) 08/26/17 01:40 Urine Bilirubin Neg (Negative) 08/26/17 01:40 Urine Urobilinogen < 2.0 mg/dL (<2.0) 08/26/17 01:40 Ur Leukocyte Esterase Lg (Negative) 08/26/17 01:40 Urine WBC (Auto) 16.0 /HPF (0.0-6.0) H 08/26/17 01:40 Urine RBC (Auto) 32.0 /HPF (0.0-6.0) 08/26/17 01:40 U Epithel Cells (Auto) 11.0 /HPF (0-13.0) 08/26/17 01:40 Urine Bacteria (Auto) 2+ /HPF (Negative) 08/26/17 01:40 Hyaline Casts 57 /LPF 08/26/17 01:40 Granular Casts 8 /LPF 08/26/17 01:40 Urine Mucus 1+ /HPF 08/26/17 01:40 Urine Opiates Screen Presumptive negative 08/26/17 01:40 Urine Methadone Screen Presumptive negative 08/26/17 01:40 Ur Barbiturates Screen Presumptive negative 08/26/17 01:40 Ur Phencyclidine Scrn Presumptive negative 08/26/17 01:40 Ur Amphetamines Screen Presumptive negative 08/26/17 01:40 U Benzodiazepines Scrn Presumptive positive 08/26/17 01:40 Urine Cocaine Screen Presumptive negative 08/26/17 01:40 U Marijuana (THC) Screen Presumptive negative 08/26/17 01:40 Drugs of Abuse Note Disclamer 08/26/17 01:40 Plasma/Serum Alcohol < 0.01 % (0-0.07) 08/25/17 23:45
[2017-08-27] MEDS: LEVAQUIN PO SCH (10:00)
[2017-08-27] MEDS: CARDURA PO SCH ×2 (10:01→21:47)
[2017-08-27] MEDS: COREG PO SCH ×2 (10:01→21:46)
[2017-08-27] MEDS: SODIUM CHLORIDE FLUSH SYRINGE 10 ML IV SCH ×2 (10:02→21:53)
[2017-08-27] MEDS: LOVENOX SUB-Q SCH (10:02)
[2017-08-27] MEDS: GUAIFENESIN DM SYRUP PO PRN ×2 (10:08→21:46)
[2017-08-27] MEDS: ULTRAM PO PRN (10:16)
[2017-08-27] MEDS: FLONASE NS SCH (10:45)
[2017-08-27] MEDS: CLARITIN-D 24HR PO SCH (10:45)
[2017-08-27] MEDS: NORCO 5/325 PO PRN (21:48)
[2017-08-28 05:15] LABS: Hematocrit 36.3 % (30.3-42.9); Hemoglobin 11.8 gm/dl (10.1-14.3); Mean Corpuscular HGB Conc 33 % (30-34); Mean Corpuscular Hemoglobin 28 pg (28-32); Mean Corpuscular Volume 86 fl (79-97); Red Blood Count 4.25 M/mm3 (3.65-5.03); Red Cell Distribution Width 15.1 % (13.2-15.2)
[2017-08-28 05:19] LABS: Platelet Count 73 K/mm3 (140-440)
[2017-08-28 05:36] LABS: BUN/Creatinine Ratio 13; Blood Urea Nitrogen 12 mg/dL (7-17); Hemolysis Index 0
[2017-08-28 06:46] LABS: Basophils % (Manual) 0 % (0.0-1.8); Eosinophils % (Manual) 0 % (0.0-4.3); Total Cells Counted 100
[2017-08-28 06:47] LABS: Platelet Estimate Consistent w Auto; RBC Morphology Normal
[2017-08-28] MEDS ORDERED: K-DUR PO ONE (07:59)
--- NOTE | 2017-08-28 08:07 | Progress Note ---
Assessment and Plan Assessment and plan: --Hypokalemia; replace per protocol and monitor levels --Neutropenia; levels slowly trending down Probably secondary to viral etiology, closely monitor, consult hematology as needed --Metabolic encephalopathy; secondary to sepsis secondary to urinary tract infection Slightly improved, patient is more alert and awake, continue supportive care --Sepsis due to urinary tract infection; present on admission IV fluids, on empiric antibiotics, cultures contamination, will resend urine for culture Symptoms slightly improved --Hypertension; moderate control, continue antihypertensives and when necessary meds --Acute kidney injury; secondary to ATN, resolved Closely monitor renal function, avoid nephrotoxins --Dyslipidemia; stable on lipid-lowering medications --DVT prophylaxis with Lovenox Closely monitor the patient and adjust the management as needed Possible discharge home in 1-2 days if stable History Interval history: Patient seen and examined medical records reviewed Feels slightly better, still has slight congestion Alert awake Oriented 3 Vital signs reviewed Hospitalist Physical - Constitutional Vitals: Temp Pulse Resp BP Pulse Ox 97.6 F 81 18 157/82 95 08/27/17 20:23 08/27/17 21:47 08/28/17 07:54 08/27/17 21:47 08/27/17 20:23 General appearance: Present: no acute distress, well-nourished, obese - EENT Eyes: Present: PERRL, EOM intact - Neck Neck: Present: supple, normal ROM - Respiratory Respiratory effort: normal Respiratory: bilateral: diminished, negative: rales, rhonchi, wheezing - Cardiovascular Rhythm: regular Heart Sounds: Present: S1 & S2 - Extremities Extremities: no ischemia, No edema - Abdominal General gastrointestinal: soft, non-tender, non-distended, normal bowel sounds - Integumentary Integumentary: Present: clear, warm - Psychiatric Psychiatric: appropriate mood/affect, cooperative - Neurologic Neurologic: CNII-XII intact, moves all extremities Results - Labs CBC & Chem 7: 08/28/17 04:53 08/28/17 04:53 Labs: Laboratory Last Values WBC 2.0 K/mm3 (4.5-11.0) L 08/28/17 04:53 RBC 4.25 M/mm3 (3.65-5.03) 08/28/17 04:53 Hgb 11.8 gm/dl (10.1-14.3) 08/28/17 04:53 Hct 36.3 % (30.3-42.9) 08/28/17 04:53 MCV 86 fl (79-97) 08/28/17 04:53 MCH 28 pg (28-32) 08/28/17 04:53 MCHC 33 % (30-34) 08/28/17 04:53 RDW 15.1 % (13.2-15.2) 08/28/17 04:53 Plt Count 73 K/mm3 (140-440) L 08/28/17 04:53 Lymph % (Auto) [employer] 08/28/17 04:53 [place] % (Auto) 10.1 % (0.0-7.3) H 08/25/17 23:45 Eos % (Auto) 0.0 % (0.0-4.3) 08/25/17 23:45 Baso % (Auto) 0.2 % (0.0-1.8) 08/25/17 23:45 Lymph # 2.2 K/mm3 (1.2-5.4) 08/25/17 23:45 [place] # 0.7 K/mm3 (0.0-0.8) 08/25/17 23:45 Eos # 0.0 K/mm3 (0.0-0.4) 08/25/17 23:45 Baso # 0.0 K/mm3 (0.0-0.1) 08/25/17 23:45 Add Manual Diff Complete 08/28/17 04:53 Total Counted 100 08/28/17 04:53 Seg Neutrophils % [employer] Operator 08/28/17 04:53 Seg Neuts % (Manual) 33.0 % (40.0-70.0) L 08/28/17 04:53 Band Neutrophils % 0 % 08/28/17 04:53 Lymphocytes % (Manual) 44.0 % (13.4-35.0) H 08/28/17 04:53 Reactive Lymphs % (Man) 7.0 % 08/28/17 04:53 Monocytes % (Manual) 16.0 % (0.0-7.3) H 08/28/17 04:53 Eosinophils % (Manual) 0 % (0.0-4.3) 08/28/17 04:53 Basophils % (Manual) 0 % (0.0-1.8) 08/28/17 04:53 Metamyelocytes % 0 % 08/28/17 04:53 Myelocytes % 0 % 08/28/17 04:53 Promyelocytes % 0 % 08/28/17 04:53 Blast Cells % 0 % 08/28/17 04:53 Nucleated RBC % Not Reportable 08/28/17 04:53 Seg Neutrophils # 4.3 K/mm3 (1.8-7.7) 08/25/17 23:45 Seg Neutrophils # Man 0.7 K/mm3 (1.8-7.7) L 08/28/17 04:53 Band Neutrophils # 0.0 K/mm3 08/28/17 04:53 Lymphocytes # (Manual) 0.9 K/mm3 (1.2-5.4) L 08/28/17 04:53 Abs React Lymphs (Man) 0.1 K/mm3 08/28/17 04:53 Monocytes # (Manual) 0.3 K/mm3 (0.0-0.8) 08/28/17 04:53 Eosinophils # (Manual) 0.0 K/mm3 (0.0-0.4) 08/28/17 04:53 Basophils # (Manual) 0.0 K/mm3 (0.0-0.1) 08/28/17 04:53 Metamyelocytes # 0.0 K/mm3 08/28/17 04:53 Myelocytes # 0.0 K/mm3 08/28/17 04:53 Promyelocytes # 0.0 K/mm3 08/28/17 04:53 Blast Cells # 0.0 K/mm3 08/28/17 04:53 WBC Morphology Not Reportable 08/28/17 04:53 Hypersegmented Neuts Not Reportable 08/28/17 04:53 Hyposegmented Neuts Not Reportable 08/28/17 04:53 Hypogranular Neuts Not Reportable 08/28/17 04:53 Smudge Cells Not Reportable 08/28/17 04:53 Toxic Granulation Not Reportable 08/28/17 04:53 Toxic Vacuolation Not Reportable 08/28/17 04:53 Dohle Bodies Not Reportable 08/28/17 04:53 Pelger-Huet Anomaly Not Reportable 08/28/17 04:53 Marya Rods Not Reportable 08/28/17 04:53 Platelet Estimate Consistent w auto 08/28/17 04:53 Clumped Platelets Not Reportable 08/28/17 04:53 Plt Clumps, EDTA Not Reportable 08/28/17 04:53 Large Platelets Not Reportable 08/28/17 04:53 Giant Platelets Not Reportable 08/28/17 04:53 Platelet Satelliting Not Reportable 08/28/17 04:53 Plt Morphology Comment Not Reportable 08/28/17 04:53 RBC Morphology Normal 08/28/17 04:53 Dimorphic RBCs Not Reportable 08/28/17 04:53 Polychromasia Not Reportable 08/28/17 04:53 Hypochromasia Not Reportable 08/28/17 04:53 Poikilocytosis Not Reportable 08/28/17 04:53 Anisocytosis Not Reportable 08/28/17 04:53 Microcytosis Not Reportable 08/28/17 04:53 Macrocytosis Not Reportable 08/28/17 04:53 Spherocytes Not Reportable 08/28/17 04:53 Pappenheimer Bodies Not Reportable 08/28/17 04:53 Sickle Cells Not Reportable 08/28/17 04:53 Target Cells Not Reportable 08/28/17 04:53 Tear Drop Cells Not Reportable 08/28/17 04:53 Ovalocytes Not Reportable 08/28/17 04:53 Helmet Cells Not Reportable 08/28/17 04:53 [place] Bodies Not Reportable 08/28/17 04:53 [place] Rings Not Reportable 08/28/17 04:53 Sami Cells Not Reportable 08/28/17 04:53 Bite Cells Not Reportable 08/28/17 04:53 Crenated Cell Not Reportable 08/28/17 04:53 Elliptocytes Few 08/28/17 04:53 Acanthocytes (Spur) Not Reportable 08/28/17 04:53 Rouleaux Not Reportable 08/28/17 04:53 Hemoglobin C Crystals Not Reportable 08/28/17 04:53 Schistocytes Not Reportable 08/28/17 04:53 Malaria parasites Not Reportable 08/28/17 04:53 Pete Bodies Not Reportable 08/28/17 04:53 Hem Pathologist Commnt No 08/28/17 04:53 Sodium 146 mmol/L (137-145) H 08/28/17 04:53 Potassium 3.5 mmol/L (3.6-5.0) L 08/28/17 04:53 Chloride 108.2 mmol/L (98-107) H 08/28/17 04:53 Carbon Dioxide 23 mmol/L (22-30) 08/28/17 04:53 Anion Gap 18 mmol/L 08/28/17 04:53 BUN 12 mg/dL (7-17) 08/28/17 04:53 Creatinine 0.9 mg/dL (0.7-1.2) 08/28/17 04:53 Estimated GFR > 60 ml/min 08/28/17 04:53 BUN/Creatinine Ratio 13 % 08/28/17 04:53 Glucose 72 mg/dL (65-100) 08/28/17 04:53 Lactic Acid 1.20 mmol/L (0.7-2.0) 08/26/17 02:05 Calcium 8.0 mg/dL (8.4-10.2) L 08/28/17 04:53 Total Bilirubin 0.50 mg/dL (0.1-1.2) 08/25/17 23:45 AST 29 units/L (5-40) 08/25/17 23:45 ALT 22 units/L (7-56) 08/25/17 23:45 Alkaline Phosphatase 85 units/L (35-129) 08/25/17 23:45 Total Protein 6.7 g/dL (6.3-8.2) 08/25/17 23:45 Albumin 3.8 g/dL (3.9-5) L 08/25/17 23:45 Albumin/Globulin Ratio 1.3 % 08/25/17 23:45 TSH 0.982 mlU/mL (0.270-4.200) 08/25/17 23:45 Urine Color [place] (Yellow) 08/26/17 01:40 Urine Turbidity Hazy (Clear) 08/26/17 01:40 Urine pH 5.0 (5.0-7.0) 08/26/17 01:40 Ur Specific [place] 1.020 (1.003-1.030) 08/26/17 01:40 Urine Protein 100 mg/dl mg/dL (Negative) 08/26/17 01:40 Urine Glucose (UA) Neg mg/dL (Negative) 08/26/17 01:40 Urine Ketones Tr mg/dL (Negative) 08/26/17 01:40 Urine Blood Sm (Negative) 08/26/17 01:40 Urine Nitrite Neg (Negative) 08/26/17 01:40 Urine Bilirubin Neg (Negative) 08/26/17 01:40 Urine Urobilinogen < 2.0 mg/dL (<2.0) 08/26/17 01:40 Ur Leukocyte Esterase Lg (Negative) 08/26/17 01:40 Urine WBC (Auto) 16.0 /HPF (0.0-6.0) H 08/26/17 01:40 Urine RBC (Auto) 32.0 /HPF (0.0-6.0) 08/26/17 01:40 U Epithel Cells (Auto) 11.0 /HPF (0-13.0) 08/26/17 01:40 Urine Bacteria (Auto) 2+ /HPF (Negative) 08/26/17 01:40 Hyaline Casts 57 /LPF 08/26/17 01:40 Granular Casts 8 /LPF 08/26/17 01:40 Urine Mucus 1+ /HPF 08/26/17 01:40 Urine Opiates Screen Presumptive negative 08/26/17 01:40 Urine Methadone Screen Presumptive negative 08/26/17 01:40 Ur Barbiturates Screen Presumptive negative 08/26/17 01:40 Ur Phencyclidine Scrn Presumptive negative 08/26/17 01:40 Ur Amphetamines Screen Presumptive negative 08/26/17 01:40 U Benzodiazepines Scrn Presumptive positive 08/26/17 01:40 Urine Cocaine Screen Presumptive negative 08/26/17 01:40 U Marijuana (THC) Screen Presumptive negative 08/26/17 01:40 Drugs of Abuse Note Disclamer 08/26/17 01:40 Plasma/Serum Alcohol < 0.01 % (0-0.07) 08/25/17 23:45
[2017-08-28] MEDS: SODIUM CHLORIDE FLUSH SYRINGE 10 ML IV SCH ×2 (10:12→22:20)
[2017-08-28] MEDS: COREG PO SCH ×2 (10:13→22:18)
[2017-08-28] MEDS: LEVAQUIN PO SCH (10:14)
[2017-08-28] MEDS: LOVENOX SUB-Q SCH (10:14)
[2017-08-28] MEDS: CARDURA PO SCH ×2 (10:14→22:19)
[2017-08-28] MEDS: GUAIFENESIN DM SYRUP PO PRN ×2 (10:15→22:18)
[2017-08-28] MEDS: FLONASE NS SCH (10:15)
[2017-08-28] MEDS: NACL 0.9% 1000 ML 1,000 ML IV SCH ×2 (10:18→22:18)
[2017-08-28] MEDS: NORCO 5/325 PO PRN ×2 (10:21→19:52)
[2017-08-28] MEDS: CLARITIN-D 24HR PO SCH (10:21)
[2017-08-28] MEDS: K-DUR PO SCH (10:22)
[2017-08-29] MEDS: COREG PO SCH (09:09)
[2017-08-29] MEDS: CARDURA PO SCH (09:09)
[2017-08-29] MEDS: K-DUR PO SCH (09:09)
[2017-08-29] MEDS: LEVAQUIN PO SCH (09:10)
[2017-08-29] MEDS: FLONASE NS SCH (09:10)
[2017-08-29] MEDS: LOVENOX SUB-Q SCH (09:10)
[2017-08-29] MEDS: GUAIFENESIN DM SYRUP PO PRN (09:11)
[2017-08-29] MEDS: NORCO 5/325 PO PRN (09:11)
[2017-08-29] MEDS: SODIUM CHLORIDE FLUSH SYRINGE 10 ML IV SCH (09:12)
[2017-08-29] MEDS: CLARITIN-D 24HR PO SCH (09:13)
[2017-08-29] MEDS: NACL 0.9% 1000 ML 1,000 ML IV SCH (11:37)
[2017-08-29 14:49] VITALS: BP 147/82
--- NOTE | 2017-08-29 15:50 | Discharge Summary ---
Providers - Providers Date of Admission: 08/26/17 05:54 Date of discharge: 08/29/17 Attending physician: ANGELITA MARTINEZ 08/26/17 09:17 Physical Therapy Evaluation and Treat [CONS] Routine Comment: Reason For Exam: Difficulty ambulating. Primary care physician: [facility] [employer]ER Hospitalization Condition: Stable Hospital course: --Hypokalemia; replace per protocol and monitor levels --Neutropenia; levels slowly trending down Probably secondary to viral etiology, closely monitor, consult hematology as needed --Metabolic encephalopathy; secondary to sepsis secondary to urinary tract infection Slightly improved, patient is more alert and awake, continue supportive care --Sepsis due to urinary tract infection; present on admission IV fluids, on empiric antibiotics, cultures contamination, will resend urine for culture Symptoms slightly improved --Hypertension; moderate control, continue antihypertensives and when necessary meds --Acute kidney injury; secondary to ATN, resolved Closely monitor renal function, avoid nephrotoxins --Dyslipidemia; stable on lipid-lowering medications --DVT prophylaxis with Lovenox Closely monitor the patient and adjust the management as needed Possible discharge home in 1-2 days if stable Disposition: OR-01 TO HOME OR SELFCARE Time spent for discharge: 32 min Core Measure Documentation - Palliative Care Palliative Care/ Comfort Measures: Not Applicable - Core Measures Any of the following diagnoses?: none Exam - Constitutional Vitals: Temp Pulse Resp BP Pulse Ox 98.7 F 75 20 147/82 99 08/29/17 13:35 08/29/17 13:35 08/29/17 13:35 08/29/17 13:35 08/29/17 13:35 General appearance: Present: no acute distress, well-nourished - EENT Eyes: Present: PERRL, EOM intact - Neck Neck: Present: supple, normal ROM - Respiratory Respiratory effort: normal Respiratory: bilateral: diminished, negative: rales, rhonchi, wheezing - Cardiovascular Rhythm: regular Heart Sounds: Present: S1 & S2 - Extremities Extremities: no ischemia, No edema - Abdominal General gastrointestinal: Present: soft, non-tender, non-distended, normal bowel sounds - Integumentary Integumentary: Present: clear, warm - Musculoskeletal Musculoskeletal: strength equal bilaterally, generalized weakness - Psychiatric Psychiatric: appropriate mood/affect, cooperative - Neurologic Neurologic: CNII-XII intact, moves all extremities Plan Activity: advance as tolerated, fall precautions Special Instructions: physical therapy Additional Instructions: Outpatient physical therapy Follow up with: PRIMARY CARE, [Primary Care Provider] - 3-5 Days Prescriptions: Amoxicillin [Trimox CAP] 500 mg PO Q8H #15 capsule AtorvaSTATin [Lipitor] 20 mg PO QDAY #30 tablet Fluticasone [Flonase] 100 mcg NS QDAY #1 bottle guaiFENesin DM [Guaifenesin Dm Syrup] 10 ml PO Q4H PRN 7 Days oral.liqd PRN Reason: Cough Loratadine/Pseudoephedrine [Claritin-D 24HR] 1 each PO Q24HR #10 tablet Other Discharge Orders: Physicial Therapy (Amb) Location: None Selected
== END 2017-08-29 16:25 | disposition home or self-care (01) | DRG 871 ==
LOC: ED 23:02 → 2B-ACE 08-26 05:54
PROVIDERS: ADMIT Internal Medicine; ATTEND Internal Medicine
DX: A41.9 Sepsis, unspecified organism (principal); G93.41 Metabolic encephalopathy; N17.0 Acute kidney failure with tubular necrosis; N10 Acute pyelonephritis; C85.90 Non-Hodgkin lymphoma, unspecified, unspecified site; Z88.8 Allergy status to other drugs, medicaments and biological substances; Z79.82 Long term (current) use of aspirin; Z86.73 Personal history of transient ischemic attack (TIA), and cerebral infarction without residual deficits; E87.6 Hypokalemia; I11.0 Hypertensive heart disease with heart failure; I50.9 Heart failure, unspecified; E78.5 Hyperlipidemia, unspecified; I48.91 Unspecified atrial fibrillation; Z82.3 Family history of stroke; D70.9 Neutropenia, unspecified
CPT/HCPCS: 36415; 71045; 80048; 80053; 80307; 80320; 81001; 82140; 84443; 85007; 85025; 87040; 87086; 93005; 93010; 96361; 96365; 96375; A9270-GY; G0480; G8978-GP; G8979-GP; G8980-GP; J0696; J1650; J2405; J3480; J7030